=== PATIENT | female | born 1940 | race Caucasian/White ===

== ENCOUNTER 2018-08-30 14:38 | Inpatient (IN) | payer OTHER ==
[~2018-08-30] VITALS: Ht 160 cm; Wt 102.1 kg
--- NOTE | ~2018-08-30 | CON ---
[address] [address] CONSULTATION Name: JARRED COHEN Room: [address] IN .R.#: [id number] Admission: 08/30/18 Attend Phys: Meet Florez MD Discharge: Date of : 36 Report #: [id number] THIS REPORT FOR: //name// CC: Meet Lau DATE OF SERVICE: 08/31/2018 HISTORY OF PRESENT ILLNESS: This is an 78-year-old female patient who was evaluated by me for altered mental status. The patient gives a history that yesterday she got confused. It came spontaneously. There was no trauma. She did have some trauma to the head about a week prior to this happened. She was not able to express herself. Her son came and took her to urgent care. She is a diabetic. It is not clear what her blood sugar was when it happened. She does not check her blood sugar on a regular basis and she does not know what her blood sugar runs on daily basis. She is hypertensive and she does not have a blood pressure cuff at home. So it is not clear what her blood pressure or pulse was that time either. She has not had this episode before. Usually, she is able to drive and take care of her daily activity by herself. Her son does come about twice a week and that is for social visit because she has not required much help. She has a walker at home, but she usually does not use a walker. She said she fell about a week ago because she tried to walk up when she was sleeping and had just gotten up. She has a history of fibromyalgia, hypertension, elevated triglyceride, neuropathy in the feet. On examination, she has very poor position sense, but it is going on for some time. She has a history of depression and she takes antidepressant. She has a history of arthritis, melasma, hysterectomy. She had both knees replaced. She had carpal tunnel syndrome, gallbladder, breast biopsy. She does take tramadol for pain. It is not clear how much she actually takes. She was not complaining of any new eye, ENT, respiratory, GI, , musculoskeletal, constitutional, dermatological, hematological, psychiatric, throat, allergic symptom except as summarized above. PAST MEDICAL HISTORY: Negative for confusion, but looks like is positive for neuropathy. FAMILY HISTORY: Negative for early age stroke. SOCIAL HISTORY: She said she does not abuse alcohol and does not smoke. PHYSICAL EXAMINATION: Indicate she is alert, oriented, able to follow simple commands. Her speech, concentration, fund of knowledge and memory is at her baseline. Cranial nerve examination 2-12 looks unremarkable. Neuromuscular examination indicates she did poorly with the sensations in the lower extremities. Her reflexes are absent there. Tone looks unremarkable. Strength is mostly preserved, but she has generalized weakness. She does not have any cerebellar sign. I could not look at the fundus because [place] [address] CONSULTATION Name: JARRED COHEN Room: [address]#: [id number] Admission: 08/30/18 Attend Phys: Meet Florez MD Discharge: Date of : 36 Report #: [id number] She is moderately obese individual who does not have any dysmorphic features of eyes, ears and face. Vision and hearing looks adequate. She has no thyroid mass. Cardiac examination is unremarkable. No respiratory difficulty was noticed. Pulses are difficult to feel. Her blood pressure is 166/65, respiration is 18, pulse is 69, and temperature is 98.5. LABORATORY DATA: Her white count is 7.7. GFR is 69. She did have a CT scan of the head, which was mostly unremarkable. IMPRESSION: 1. It is not certain what the etiology of the patient's spell is. Multiple etiologies can cause that and they also include the possibility of hypoglycemia at that time and blood pressure, but we need to also evaluate her for the possibility of transient ischemic attack. She also has pretty significant neuropathy in the lower extremities. I am not sure her diabetes is controlled because she does not check that very often. That needs to be addressed and probably need to be addressed as an outpatient because we do not have an EMG. She also appeared to have urinary tract infection and that will also contribute to some confusion. RECOMMENDATIONS: 1. EEG. 2. We will get an MRI. 3. Cardiology is evaluating her for any cardiac status and we will defer that evaluation for you. She needs a workup for her neuropathy. She needs to do that as an outpatient. Her pulses are also difficult to feel and she may need some more evaluation in that regard also. Thank you very much for this referral. By: [id number] Lowery MD /adam
--- NOTE | ~2018-08-30 | EEG ---
[address] [address] EEG STUDY REPORT Name: JARRED COHEN Room: [address] IN .R.#: [id number] Admission: 08/30/18 Attend Phys: Meet Florez MD Discharge: Date of : 36 Report #: [id number] THIS REPORT FOR: //name// CC: Meet Florez Navin Lau DATE OF SERVICE: 08/31/2018 This patient is being evaluated for altered mental status. EEG was done by placing the electrode by standard 10-20 system of electrode placement. Both referential and sequential montages were used for recording. Background activity in this patient's EEG is about 10-11 Hz and 30 microvolt. The patient became drowsy and that is associated with bilateral slowing and vertex sharp waves. Photic stimulation is unremarkable. Throughout the record, no active epileptiform activity was noticed. IMPRESSION: This patient's EEG demonstrates some intermixed slowing. That is a nonspecific abnormality, which can occur with dementia, encephalopathy, effect of psychotropic medication, etc. No active epileptiform activity was noticed. Thank you very much for this referral. By: [id number] Lowery MD /adam
[2018-08-30 15:55] LABS: ABSOLUTE BASOPHILS 0.1 thou/uL (0.0-0.2); ABSOLUTE EOSINOPHILS 0.1 thou/uL (0.0-0.7); ABSOLUTE LYMPHOCYTES 1.8 thou/uL (0.8-5.3); ABSOLUTE MONOCYTES 0.6 thou/uL (0.0-1.2); ABSOLUTE NEUTROPHILS 7.8 thou/uL (1.6-8.1); EOSINOPHILS 0.9 %; HEMOGLOBIN 13.3 gm/dL (12.0-15.0); LYMPHOCYTES 17.2 %; MCH 33.2 pg (26.0-34.0); MCHC 34.9 g/dL (28.0-37.0); MCV 95.1 fL (80.0-100.0); MONOCYTES 5.8 %; MPV 7.4 fl. (7.2-11.1); NUCLEATED RBCS 0 /100WBC; PLATELET COUNT* 405 thou/uL (150-400); POLYS 75.1 %; RDW-CV 13.2 % (10.5-14.5); WBC 10.4 thou/uL (4.0-11.0)
[2018-08-30 15:57] LABS: URINE BILIRUBIN NEGATIVE (Negative); URINE BLOOD NEGATIVE (Negative); URINE CLARITY CLEAR; URINE COLOR YELLOW; URINE GLUCOSE-RANDOM 3+ (Negative); URINE KETONES 1+ (Negative); URINE LEUKOCYTES-REFLEX TRACE (Negative); URINE NITRITE-REFLEX NEGATIVE (Negative); URINE PROTEIN 1+ (Negative); URINE SPECIFIC GRAVITY 1.015 (1.005-1.030)
[2018-08-30 16:20] LABS: CALCIUM 9.8 mg/dL (8.5-10.1); CREATININE 0.9 mg/dL (0.6-1.3); POTASSIUM 4.2 mmol/L (3.5-5.1); TROPONIN-I LEVEL 0.1 ng/mL (<0.06)
[2018-08-30 16:21] LABS: BACTERIA-REFLEX >30 Many /HPF (None Seen); CASTS None Seen /LPF (None Seen); CRYSTALS None Seen /LPF (None Seen); SQUAMOUS 0-3 Few /LPF (0-3); URINE RBC None Seen /HPF (0-2); URINE WBC-REFLEX 0-5 Rare /HPF (0-5)
[2018-08-30 16:22] LABS: ALBUMIN 3.1 g/dL (3.4-5.0); TOTAL BILIRUBIN 0.7 mg/dL (<0.1-1.0); TOTAL PROTEIN 7.8 g/dL (6.4-8.2)
[2018-08-30 16:40] LABS: INFLUENZA A ANTIGEN None Detected (None Detect); INFLUENZA B ANTIGEN None Detected (None Detect)
[2018-08-30] MEDS ORDERED: NEURONTIN600 MG PO (19:44)
[2018-08-30] MEDS ORDERED: GLUCOTROL5 MG PO (19:45)
[2018-08-30] MEDS ORDERED: LOPRESSOR50 PO (19:45)
[2018-08-30] MEDS ORDERED: TRAMADOL 50 MG50 MG PO (19:45)
[2018-08-30] MEDS ORDERED: ZYLOPRIM300 MG PO (19:46)
[2018-08-30] MEDS ORDERED: BENAZEPRIL HCL5 MG PO (19:46)
[2018-08-30] MEDS ORDERED: CELEXA20 MG PO (19:46)
[2018-08-30] MEDS ORDERED: KLOR-CON 1010 MEQ PO ×2 (20:38→20:41)
[2018-08-30 20:43] VITALS: BP 142/74
[2018-08-30 21:00] VITALS: BP 158/95
[2018-08-31 00:30] VITALS: BP 166/62
[2018-08-31 04:15] VITALS: BP 166/65
[2018-08-31 05:16] LABS: ABSOLUTE EOSINOPHILS 0.2 thou/uL (0.0-0.7); ABSOLUTE LYMPHOCYTES 2.1 thou/uL (0.8-5.3); ABSOLUTE MONOCYTES 0.5 thou/uL (0.0-1.2); ABSOLUTE NEUTROPHILS 4.8 thou/uL (1.6-8.1); BASOPHILS 0.5 %; EOSINOPHILS 2.5 %; HEMATOCRIT 33.6 % (37.0-47.0); HEMOGLOBIN 11.7 gm/dL (12.0-15.0); LYMPHOCYTES 27.3 %; MCH 33.2 pg (26.0-34.0); MCHC 34.7 g/dL (28.0-37.0); MCV 95.8 fL (80.0-100.0); MONOCYTES 6.7 %; NUCLEATED RBCS 0 /100WBC; PLATELET COUNT* 339 thou/uL (150-400); RBC 3.51 mil/uL (4.20-5.00); RDW-CV 13.5 % (10.5-14.5); WBC 7.7 thou/uL (4.0-11.0)
[2018-08-31 05:29] LABS: CALCIUM 9.1 mg/dL (8.5-10.1); CREATININE 0.8 mg/dL (0.6-1.3); POTASSIUM 4.1 mmol/L (3.5-5.1)
[2018-08-31 11:32] VITALS: BP 112/61
--- NOTE | 2018-08-31 11:41 | EKG ---
[place] [address] ELECTROCARDIOGRAM REPORT Name: JARRED COHEN Room: [address] IN [facility]#: [id number] Admission: 08/30/18 Attend Phys: Meet Florez MD Discharge: Date of : 36 Report #: [id number] THIS REPORT FOR: //name// [facility] ED Test Date: 2018-08-30 Test Time: 15:52:04 Pat Name: JARRED COHEN Department: Room: [facility] Gender: [employer] Operator: Aaliyah DWYER : 1940 Requested By: Homer Martins Order Number: [id number] MD: Kingsley Bradford Measurements Intervals [place] Rate: 68 P: 16 GA: 184 QRS: 10 QRSD: 95 T: 39 QT: 427 QTc: 455 Interpretive Statements Sinus rhythm Atrial premature complexes No previous ECG available for comparison Electronically Signed On 08-31-2018 11:41:13 CDT by Kingsley Bradford [email or web address] <ELECTRONICALLY SIGNED> By: Kingsley Bradford MD, [facility] 08/31/18 1141 [id number] Kingsley Bradford MD, FACC /EPI
--- NOTE | 2018-08-31 13:16 | 2DMMODE ---
[place] [address] 2 D/M-MODE ECHOCARDIOGRAM Name: JARRED COHEN Room: [address] IN [facility]#: [id number] Admission: 08/30/18 Attend Phys: Meet Florez, Discharge: Date of : 36 Date of Service: 08/31/18 1315 Report #: [id number] THIS REPORT FOR: //name// APPROVED REPORT Study performed: 08/31/2018 10:57:11 EXAM: Comprehensive 2D, Doppler, and color-flow Echocardiogram Patient Location: In-Patient Room #: [facility] Status: routine BSA: 2.04 HR: 68 bpm BP: 166/65 mmHg Rhythm: NSR Other Information Study Quality: Good Indications Elevated Troponin 2D Dimensions IVSd: 15.62 (7-11mm) LVOT Diam: 21.46 (18-24mm) LVDd: 40.31 mm PWd: 13.60 (7-11mm) Ascending Ao: 35.36 (22-36mm) LVDs: 32.38 (25-40mm) Aortic Root: 35.06 mm Volumes Left Atrial Volume (Systole) LA ESV Index: 25.60 mL/m2 Aortic Valve AoV Peak Teodoro.: 1.25 m/s AO Peak Gr.: 6.22 mmHg LVOT Max P.12 mmHg AO Mean Gr.: 3.23 mmHg LVOT Mean P.47 mmHg LVOT Max V: 1.13 m/s AO V2 VTI: 25.45 cm LVOT Mean V: 0.73 m/s ALEXI (VTI): 3.65 cm2 LVOT V1 VTI: 25.69 cm Mitral Valve E/A Ratio: 0.84 MV Decel. Time: 217.50 ms MV E Max Teodoro.: 1.02 m/[place] [address] 2 D/M-MODE ECHOCARDIOGRAM Name: JARRED COHEN Room: [address] [place] [facility]#: [id number] Admission: 08/30/18 Attend Phys: Meet Florez, Discharge: Date of : 36 Date of Service: 08/31/18 1315 Report #: [id number] PHT: 63.07 ms MVA (PHT): 3.49 cm2 TDI E/Lateral E': 10.20 E/Medial E': 14.57 Medial E' Teodoro.: 0.07 m/s Lateral E' Teodoro.: 0.10 m/s Pulmonary Valve PV Peak Teodoro.: 0.87 m/s PV Peak Gr.: 3.05 mmHg Left Ventricle The left ventricle is normal size. There is normal LV segmental wall motion. Moderate concentric left ventricular hypertrophy. Left ventricular systolic function is normal. LVEF is 65-70%. Grade I - abnormal relaxation pattern. Right Ventricle The right ventricle is normal size. The right ventricular systolic function is normal. Atria Left atrium is mildly dilated. Right atrium is mildly dilated. Aortic Valve Mild aortic valve sclerosis. No aortic regurgitation is present. There is no aortic valvular stenosis. Mitral Valve There is mitral annular calcification. Trace mitral regurgitation. No evidence of mitral valve stenosis. Tricuspid Valve The tricuspid valve is normal in structure. Trace tricuspid regurgitation. Unable to assess PA pressure. Pulmonic Valve The pulmonary valve is normal in structure. Trace pulmonic regurgitation. Great Vessels The aortic root is normal in size. IVC is normal in size and collapses >50% with [place] [address] 2 D/M-MODE ECHOCARDIOGRAM Name: JARRED COHEN Room: [address]#: [id number] Admission: 08/30/18 Attend Phys: Meet Florez, Discharge: Date of : 36 Date of Service: 08/31/18 1315 Report #: [id number] There is no pericardial effusion. <Conclusion> The left ventricle is normal size. Moderate concentric left ventricular hypertrophy. Left ventricular systolic function is normal. LVEF is 65-70%. Grade I - abnormal relaxation pattern. Left atrium is mildly dilated. Right atrium is mildly dilated. Mild aortic valve sclerosis. There is mitral annular calcification. Trace mitral regurgitation. Trace tricuspid regurgitation. IVC is normal in size and collapses >50% with inspiration. <ELECTRONICALLY SIGNED> By: Pedro Owens MD, FACC 08/31/18 1315 14 14 Pedro Owens MD, FACC /INF
[2018-08-31 21:05] VITALS: BP 148/88
[2018-08-31 23:30] VITALS: BP 145/70
[2018-09-01 04:00] VITALS: BP 158/94
[2018-09-01 05:13] LABS: ABSOLUTE BASOPHILS 0.1 thou/uL (0.0-0.2); ABSOLUTE EOSINOPHILS 0.2 thou/uL (0.0-0.7); ABSOLUTE LYMPHOCYTES 2.1 thou/uL (0.8-5.3); ABSOLUTE MONOCYTES 0.5 thou/uL (0.0-1.2); ABSOLUTE NEUTROPHILS 4.8 thou/uL (1.6-8.1); BASOPHILS 0.7 %; EOSINOPHILS 3.3 %; LYMPHOCYTES 27.7 %; MCH 32.1 pg (26.0-34.0); MCHC 33.5 g/dL (28.0-37.0); MONOCYTES 5.9 %; MPV 7.2 fl. (7.2-11.1); NUCLEATED RBCS 0 /100WBC; PLATELET COUNT* 324 thou/uL (150-400); POLYS 62.4 %; RBC 3.75 mil/uL (4.20-5.00); RDW-CV 13.2 % (10.5-14.5); WBC 7.7 thou/uL (4.0-11.0)
[2018-09-01 06:04] LABS: ALBUMIN 2.5 g/dL (3.4-5.0); CREATININE 0.8 mg/dL (0.6-1.3); POTASSIUM 3.9 mmol/L (3.5-5.1); TOTAL BILIRUBIN 0.2 mg/dL (<0.1-1.0); TOTAL PROTEIN 6.6 g/dL (6.4-8.2)
[2018-09-01 07:00] LABS: ESR (SEDRATE) 90 mm/hr (0-30)
[2018-09-01 08:00] VITALS: BP 178/82
[2018-09-01 12:00] VITALS: BP 152/71
[2018-09-01 14:08] LABS: IgA 241 mg/dL (64-422); IgG 812 mg/dL (700-1600); IgM 126 mg/dL (26-217)
[2018-09-01 16:00] VITALS: BP 128/68
[2018-09-01 20:45] VITALS: BP 149/82
[2018-09-01 23:15] VITALS: BP 168/75
[2018-09-02 04:00] VITALS: BP 138/77; BP 145/85
[2018-09-02 05:02] LABS: HEMATOCRIT 37.1 % (37.0-47.0); HEMOGLOBIN 12.7 gm/dL (12.0-15.0); MCH 32.5 pg (26.0-34.0); MCHC 34.3 g/dL (28.0-37.0); MCV 94.6 fL (80.0-100.0); MPV 6.8 fl. (7.2-11.1); RBC 3.92 mil/uL (4.20-5.00); WBC 8.6 thou/uL (4.0-11.0)
[2018-09-02 05:17] LABS: ANION GAP 12 mmol/L (7-16); BUN 13 mg/dL (7-18); CALCIUM 9.1 mg/dL (8.5-10.1); CHLORIDE 101 mmol/L (98-107); CHOLESTEROL 183 mg/dL (<200); CO2 22 mmol/L (21-32); CREATININE 0.8 mg/dL (0.6-1.3); GLUCOSE 167 mg/dL (70-99); HDL CHOLESTEROL 48 mg/dL (>40); LDL CHOLESTEROL 109 mg/dL (<100); MAGNESIUM 1.6 mg/dL (1.8-2.4); POTASSIUM 4.3 mmol/L (3.5-5.1); SODIUM 135 mmol/L (136-145); TC:HDL 3.8 Ratio (Not establshd); TRIGLYCERIDE 131 mg/dL (<150); VLDL 26 mg/dL (<40)
[2018-09-02 06:02] LABS: SERUM ASSESSMENT CLEAR
[2018-09-02 08:00] VITALS: BP 151/76
[2018-09-02] MEDS ORDERED: PIOGLITAZONE15 MG PO (08:52)
[2018-09-02] MEDS ORDERED: CIPRO500 MG PO (08:52)
[2018-09-02] MEDS ORDERED: ADULT LOW DOSE81 MG PO (08:52)
[2018-09-02] MEDS ORDERED: KLOR-CON 1010 MEQ PO (11:16)
[2018-09-02 11:19] VITALS: BP 151/76
[2018-09-02 11:50] VITALS: BP 142/62
[2018-09-03 12:10] LABS: ANA INTERPRETATION Negative (Negative)
== END 2018-09-02 12:43 | disposition home health service (06) | DRG 70 ==
LOC: M.ERS 14:38 → M.TBA-ER 16:52 → M.2W 16:52
PROVIDERS: Emergency Medicine; Internal Medicine; Psychiatry & Neurology Neuromuscular Medicine; Registered Nurse; ADMIT Internal Medicine
DX: G93.41 Metabolic encephalopathy (principal); R65.11 Systemic inflammatory response syndrome (SIRS) of non-infectious origin with acute organ dysfunction; N39.0 Urinary tract infection, site not specified; M79.7 Fibromyalgia; I10 Essential (primary) hypertension; F32.9 Major depressive disorder, single episode, unspecified; E11.42 Type 2 diabetes mellitus with diabetic polyneuropathy; E86.0 Dehydration; Z96.653 Presence of artificial knee joint, bilateral; G56.00 Carpal tunnel syndrome, unspecified upper limb; B96.89 Other specified bacterial agents as the cause of diseases classified elsewhere; J45.909 Unspecified asthma, uncomplicated; M19.90 Unspecified osteoarthritis, unspecified site; Z90.710 Acquired absence of both cervix and uterus; Z90.49 Acquired absence of other specified parts of digestive tract; Z91.040 Latex allergy status; Z88.7 Allergy status to serum and vaccine; Z79.899 Other long term (current) drug therapy; Z91.81 History of falling

== ENCOUNTER 2018-10-18 14:11 | Emergency (ER) | payer OTHER ==
[~2018-10-18] VITALS: Ht 162.6 cm; Wt 104.3 kg
[~2018-10-18 14:11] MED LIST: ADULT LOW DOSE81 MG PO; BENAZEPRIL HCL5 MG PO; CELEXA20 MG PO; CIPRO500 MG PO; GLUCOTROL5 MG PO; KLOR-CON 1010 MEQ PO; LOPRESSOR50 PO; NEURONTIN600 MG PO; PIOGLITAZONE15 MG PO; TRAMADOL 50 MG50 MG PO; ZYLOPRIM300 MG PO
[2018-10-18 15:00] LABS: ABSOLUTE BASOPHILS 0.1 thou/uL (0.0-0.2); ABSOLUTE EOSINOPHILS 0.2 thou/uL (0.0-0.7); ABSOLUTE LYMPHOCYTES 2.4 thou/uL (0.8-5.3); ABSOLUTE MONOCYTES 0.5 thou/uL (0.0-1.2); ABSOLUTE NEUTROPHILS 5.1 thou/uL (1.6-8.1); BASOPHILS 0.9 %; EOSINOPHILS 2.4 %; HEMATOCRIT 34.7 % (37.0-47.0); HEMOGLOBIN 11.9 gm/dL (12.0-15.0); LYMPHOCYTES 28.9 %; MCH 32.6 pg (26.0-34.0); MCHC 34.2 g/dL (28.0-37.0); MCV 95.3 fL (80.0-100.0); MONOCYTES 6.4 %; MPV 7.1 fl. (7.2-11.1); NUCLEATED RBCS 0 /100WBC; PLATELET COUNT* 329 thou/uL (150-400); POLYS 61.4 %; RBC 3.65 mil/uL (4.20-5.00); RDW-CV 14.1 % (10.5-14.5); WBC 8.3 thou/uL (4.0-11.0)
[2018-10-18 15:10] LABS: CALCIUM 9.7 mg/dL (8.5-10.1); CREATININE 0.9 mg/dL (0.6-1.3); POTASSIUM 4.5 mmol/L (3.5-5.1)
[2018-10-18 15:13] LABS: APTT 26.4 Seconds (25.0-31.3); INR 1.1
[2018-10-18 15:15] LABS: ALBUMIN 3.2 g/dL (3.4-5.0); TOTAL BILIRUBIN 0.4 mg/dL (<0.1-1.0); TOTAL PROTEIN 7.1 g/dL (6.4-8.2)
[2018-10-18] MEDS ORDERED: NORCO 5-325 TA1 EAC1 PO (16:42)
[2018-10-18 17:35] VITALS: BP 184/83
[2018-10-18] MEDS ORDERED: NABUMETONE 750750 M1 PO (18:22)
[2018-10-18] MEDS ORDERED: MAGNESIUM PO (18:23)
[2018-10-18] MEDS ORDERED: VITAMIN D3400 UNIT PO (18:23)
[2018-10-18] MEDS ORDERED: GLUCOPHAGE XR750 MG PO (18:24)
[2018-10-18] MEDS ORDERED: VITAMIN B-12500 MCG PO (18:24)
== END 2018-10-18 16:58 | disposition home or self-care (01) ==
LOC: M.ERS 14:11
PROVIDERS: Nurse Practitioner Family
DX: S39.012A Strain of muscle, fascia and tendon of lower back, initial encounter (principal); S29.012A Strain of muscle and tendon of back wall of thorax, initial encounter; S20.212A Contusion of left front wall of thorax, initial encounter; S20.211A Contusion of right front wall of thorax, initial encounter; M79.7 Fibromyalgia; I10 Essential (primary) hypertension; E78.00 Pure hypercholesterolemia, unspecified; F32.9 Major depressive disorder, single episode, unspecified; G62.9 Polyneuropathy, unspecified; M19.90 Unspecified osteoarthritis, unspecified site; Z90.710 Acquired absence of both cervix and uterus; Z91.040 Latex allergy status; Z88.7 Allergy status to serum and vaccine; W01.0XXA Fall on same level from slipping, tripping and stumbling without subsequent striking against object, initial encounter; Y93.89 Activity, other specified; Y92.89 Other specified places as the place of occurrence of the external cause; Y99.8 Other external cause status